=== PATIENT | male | born 1960 | race African-American/Black ===

== ENCOUNTER 2023-03-03 08:33 | Outpatient (CLI) | payer BC, SELFPAY | END 2023-03-03 08:34 | disposition home or self-care (01) | LOC: NFLDREF 03-05 20:03 | PROVIDERS: PCP Family Medicine; Referring Provider Family Medicine; Visit Provider Family Medicine | DX: Z12.5 Encounter for screening for malignant neoplasm of prostate (principal); Z13.1 Encounter for screening for diabetes mellitus; Z13.220 Encounter for screening for lipoid disorders | CPT/HCPCS: 80053; 80061; 84153 ==

== ENCOUNTER 2023-09-04 08:04 | Outpatient (CLI) | payer BC, SELFPAY ==
--- OUTSIDE RECORDS SUMMARY | 2023-09-06 07:25 | XMS_ITS | Data Portability ---
Author Name Unknown Address [address] [place] [address] Phone [phone] Organization [facility], [facility] Address [address] [facility] [address] [place] [address] Care Team Providers Care Caser Name Role Phone DEANNKAREL Primary Care Provider [phone] Assessment Encounter Date Assessment Date Assessment LastModified by Organization Details LastModified Time 09/17/2021 09/17/2021 61 yoM with elevated PSA and abnormal Prostate MRI now s/p biopsy Not available 09/17/2021 09:47:53 10/01/2021 10/01/2021 61 yoM with elevated PSA and abnormal Prostate MRI now s/p biopsy Of note a total of 30 minutes was spent: preparing to see the patient by reviewing records, images, and laboratory data; obtaining/revie wing separately obtained history; performing physical examination, counseling and educating patient/family/ caregiver; ordering appropriate medications, labs, imaging or procedures; documenting the clinical encounter; and coordination of care. Not available 10/01/2021 16:54:13 05/20/2022 05/20/2022 62M s/p RALP on 05/10/[address] Love for pT3aNX Etienne 4+3=7 prostate cancer (+SMS (1 mm at right apex), +LVI, tert pattern 5). We discussed the pathology report in detail, and I explained the risk of recurrence and need for ongoing follow-up for PSA monitoring. We will check the first postop PSA in about 6 weeks. We also discussed expectations for recovery of continence and the importance of Kegel exercises. 1. Prostate cancer - Moran removed today - abx for ppx (cipro 500 mg x2) - continue lifting/activit y restrictions x6 weeks post-op - reviewed Julio Cesar, handout provided - f/u in 6 weeks with PSA with Dr. Ivan [email or web address] Not available 05/20/2022 11:34:53 Plan of Treatment Reminders Order Date Submit Date Provider Last Modified By Organization Details Last Modified Time Details Appointments None recorded . Lab PSA, serum or plasma 2023 024 melissa [facility], [address], [place], [address], 4 16:34:49 PSA, serum or plasma 2022 023 yane [facility], [address], [place], [address], 3 15:53:53 Referral None recorded . Procedures None recorded . Surgeries None recorded . Imaging NM, bone scan, whole body - Please contact patient to gadiel frausto. Thank you. 2021 022 [facility] Radiology Department, [address] [place], [address], 2 08:58:34 CT, abdomen + pelvis, w/ contrast - Please contact patient to vicente frausto. Thank you. 2021 022 [facility] Radiology Department, [address] [place], [address], 2 15:14:25 Medication Orders FV-Tri-M ix 4 2023 024 [facility], [address] [place] [address], [address], 4 16:40:01 Patient TargetsNo targets recorded. Patient Instructions Encounter Date Encounter Id Patient Instructions Last Modified By Organization Details Last Modified Time 10/01/2021 [id number] I had a long discussion regarding the diagnosis of prostate cancer and its treatment options. I told him that prostate cancer is the most common cancer in men in the [place] and that with PSA screening and emerging public awareness of the disease, prostate cancer is being diagnosed with greater frequency and fortunately at an earlier stage. We briefly discussed the controversies regarding PSA screening for prostate cancer. We discussed the treatment options for localized disease, reviewing the potential complications and advantages of each therapeutic modality. I mentioned that for some men, watchful waiting or active surveillance may be an appropriate option. Prostate cancer can sometimes behave in a relatively indolent manner, and for those who have other comorbidities or advanced age, simply following the patient and reserving treatment for clinical symptoms may be the best option. Unfortunately, we do not know which cancers will behave in this manner and which ones will be more aggressive. Obviously there is a risk of spread of the cancer and continued local growth if the cancer is not treated. I then discussed radiation therapy, both as external beam and interstitial brachytherapy. We talked about the potential side effects of radiation cystitis, radiation proctitis, impotence, fistula formation, and incontinence. I then talked about surgery, specifically radical prostatectomy. This can be performed either open or robotic-assisted laparoscopically, with similar outcomes. I told him that there is a risk of bleeding requiring blood transfusion (about 5-10%), infection, wound complications, rectal injury, DVT/PE, erectile dysfunction (20-70%), bladder neck contracture (3%) and incontinence (severe enough to require further therapy in 3-5%). The advantage of surgery is that we would be able to analyze the specimen and the regional lymph nodes, thereby knowing the true pathologic stage of the disease. This would allow us to better gauge his prognosis, and possibly guide decisions regarding adjuvant therapies such as radiation or hormone therapy. We also discussed some of the newer technologies, such as cryotherapy and proton beam therapy, though it is still too early to know what the long-term outcomes are for these treatments. I then discussed the surgery and the perioperative management. I believe that he would be an appropriate candidate for a robotic-assisted laparoscopic approach utilizing the Bluetector robotic system. He would have a catheter in place for about 7-10 days. A drain will be placed and removed prior to his discharge from the hospital, typically in about 1-2 days. I warned the patient that it is common to have some incontinence immediately after the catheter is removed, but this usually quickly improves. Usually by about 6 months, nearly 80% of patients will have regained their continence, and nearly all patients by 1 year. Erectile function may take 1, even 2 years to improve, though this is variable. We talked about some of the treatments for erectile dysfunction, including oral therapies, injections, pump, and penile prosthetics. We also briefly touched upon management for persistent incontinence, should that be a problem, including pads, artificial sphincters, and injectable therapies. Postoperatively, I would continue to follow him at regular intervals with PSA? s and exams to ensure that the prostate cancer does not come back. Not available 10/01/2021 16:55:22 Reason for Referral None Reported. Results Created Date Observation Date Name Description Value Unit Range Abnormal Flag LastModifiedBy Organization Detail LastModifiedTime 08/12/19 23 08/11/2022 PSA, serum or plasm a PSA <0.04 ng/ml 0-4.0 Not Available [facility] [address], [place], [address], 08/11/2022 15:26:17 06/08/19 24 06/08/2023 PSA, serum or plasm a PSA <0.04 ng/ml 0-4.0 Not Available [facility] [address], [place], [address], 06/08/2023 16:16:16 07/20/19 22 07/16/2021 MRI, prost ate, w/wo contr ast No observ ation record ed. Not Available 09/17/2021 13:13:46 09/22/19 22 09/17/2021 US, prost ate No observ ation record ed. BARCODE Not Available 09/21/2021 10:09:03 10/22/19 22 10/21/2021 CT, abdom en + pelvi s, w/ contr ast No observ ation record ed. [email or web address] [facility] Radiology Department [address] [place], [address], 10/25/2021 13:26:08 10/23/19 22 10/21/2021 NM, bone scan, whole body No observ ation record ed. [email or web address] [facility] Radiology Department [address] [place], [address], 10/25/2021 13:26:08 11/20/19 22 11/02/2021 PET-C T, skull base to mid-t high scan No observ ation record ed. [email or web address] [facility] [address] [place], [address], 01/04/2022 11:54:30 Result Notes None recorded. Problems Name Status Onset Date Resolution Date Notes Provider Name and Address Organization Details Recorded Time Malignant tumor of prostate Active 05/09/20 22 Etienne 8 left base and mid. Negative preop PSMA scan. 58cc gland. RALP on 05/10/[address] Love for pT3aNX Etienne 4+3=7 prostate cancer (+SMS (1 mm at right apex), +LVI, tert pattern 5). Isaac Love MD [address] [place] [address],[address] [place] [address], [address] , [facility] 06/30/2022 13:30:19 Problem Notes None recorded. Procedures Surgical History Date Name Laterality Status Provider Name and Address Organization Details Recorded Time 4 COMPLEX VISIT completed Isaac Love MD [address] [place] [address],[address] [place] [address], [address], [facility] 07/06/2023 16:24:37 4 DT Penile Injection Teaching completed Isaac Love MD [address] [place] [address],[address], [place], [address], [facility] 07/06/2023 16:22:25 4 COMPLEX VISIT completed Isaac Love MD [address] [place] [address],[facility] [address], [place], [address], [facility] 06/08/2023 16:43:03 4 Blood Draw/FIELD SERVICE REPRESENTATIVE/PSA RESULTS completed Joe hartman [facility] 06/08/2023 16:16:13 3 Blood Draw/FIELD SERVICE REPRESENTATIVE/PSA RESULTS completed Isaac Love MD [address] [facility],[address], [place], [address], [place] [facility] 08/11/2022 15:26:13 3 Moran Catheter Removal completed Becca Worrell PA-C [address] [facility],[address], [place], [address], [place] [facility] 05/20/2022 11:34:13 2 PROSTATECTOMY, LAPAROSCOPIC, ROBOTIC (SURG) completed Gosia hartman [facility] 05/12/2022 11:44:54 2 Prostate Biopsy Procedure completed Hector De Jesus MD [address] [facility],[address], [place], [address], [place] [facility] 09/17/2021 13:15:26 1 Colonoscopy completed Isaac Love MD [address] [facility],[address], [place], [address], [facility] 02/02/2022 15:33:01 Imaging Results Imaging Date Name Status LastModified by Organiz atformerly [facility] Details LastModified Time 07/16/2021 MRI, prostate, w/wo contrast completed Information not available 09/17/2021 13:13:46 09/17/2021 US, prostate completed BARCODE Information not available 09/21/2021 10:09:03 10/21/2021 CT, abdomen + pelvis, w/ contrast completed [address] Radiology Department [address] [place], [address], 10/25/2021 13:26:08 10/21/2021 NM, bone scan, whole body completed [address] Radiology Department [address] [place], [address], 10/25/2021 13:26:08 11/02/2021 PET-CT, skull base to mid-thigh scan completed [email or web address] [facility] [address] [place], [address], 01/04/2022 11:54:30 Procedure Notes None recorded. Medical Equipment None Reported. Allergies No known drug allergies Medications Name Sig Start Date Stop Date Status Note LastModified by Organization Details LastModified Time FV-Tri-Mix 4 inject 0.1-0.6 cc intracave rnosal as directed PRN for sexual activity 2023 active Not Available Not Available Not Avai lable amlodipine 5 mg tablet TAKE 1 TABLET BY MOUTH DAILY active Not Available Not Available No t Available ceftriaxone 1 gram solution for injection Take 1 g by injection route. 02/02 completed Not Available Not Available Not Available prednisolon e acetate 1 % eye drops,suspe nsion SHAKE LIQUID AND INSTILL 1 DROP IN RIGHT EYE TWICE DAILY 02/02 completed Not Available Not Available Not Available papaverine (bulk) powder 07/06 completed Not Available Not Available Not Available triamterene 37.5 mg-hydrochl orothiazide 25 mg tablet TAKE 1 TABLET BY MOUTH DAILY 02/02 completed Not Available Not Available Not Available oxycodone 5 mg tablet 05/20 completed Not Available Not Available Not Available tadalafil 5 mg tablet TAKE 1 TABLET BY MOUTH ONCE DAILY 07/06 completed Not Available Not Available Not Available Senexon-S 8.6 mg-50 mg tablet 05/20 completed Not Available Not Available Not Available Vitals Date Recorded Body height Body mass index (BMI) Body weight Provider Name and Address Organization Details Last Updated DateTime 02/02/2022 165.1 cm 30 kg/m2 88087.63 g Isaca Love MD [address] [place] [address], [address], [facility] 02/02/2022 15:32:05 Date Recorded Body height Body mass index (BMI) Body weight Provider Name and Address Organization Details Last Updated DateTime 05/20/2022 165.1 cm 30 kg/m2 07215.63 g Domi hartman [facility] 05/20/2022 11:00:14 Date Recorded Body height Body mass index (BMI) Body weight Provider Name and Address Organization Details Last Updated DateTime 06/30/2022 165.1 cm 30 kg/m2 64364.63 g Isaac Love MD [address] [place] [address],[address], [address] [place] [address] 06/30/2022 14:03:44 Date Recorded Body height Body mass index (BMI) Body weight Provider Name and Address Organization Details Last Updated DateTime 08/11/2022 165.1 cm 30 kg/m2 20885.63 g Isaac Love MD [address] [address] [place] [address] 08/11/2022 15:25:58 Date Recorded Body height Body mass index (BMI) Body weight Provider Name and Address Organization Details Last Updated DateTime 06/08/2023 165.1 cm 30 kg/m2 99011.63 g Joe hartman [facility] 06/08/2023 16:15:42 Date Recorded Body height Body mass index (BMI) Body weight Provider Name and Address Organization Details Last Updated DateTime 07/06/2023 165.1 cm 30 kg/m2 73473.63 g Isaac Love MD [address] [address] [place] [address] 07/06/2023 15:49:01 Date Recorded Body height Body mass index (BMI) Body weight Provider Name and Address Organization Details Last Updated DateTime 10/01/2021 165.1 cm 30 kg/m2 84177.16 g Joe hartman [facility] 10/01/2021 16:26:17 Social History Question Answer Notes LastModified by Organizat ion Details LastModified Time Tobacco Smoking Status Never Smoker Froy hartman [facility] 09/17/2021 12:43:47 What Is Your Level Of Alcohol Consumption? Occasional Information not available 05/20/2022 What Is Your Level Of Caffeine Consumption? Occasional Information not available 05/20/2022 What Was The Date Of Your Most Recent Tobacco Screening? 06/08/2023 [email or web address] Information not available 06/08/2023 Do You Use Any Illicit Or Recreational Drugs? No Information not available 05/20/2022 Has Tobacco Cessation Counseling Been Provided? No Information not available 05/20/2022 Sex: Male Functional Status None recorded. Mental Status None recorded. Family History Relationship Description Onset Age of this Age Resolved Age Notes Father No current problems or disability Mother No current problems or disability Medical History Condition Response Sexually Transmitted Infection N Diabetes N Bleeding Disorder N Other N High Blood Pressure Y Kidney Stones N High Cholesterol N GERD/Acid Reflux N Heart Disease N Cancer Y Lung Disease N Depression N Immunizations Vaccine Type Date Status Provider Name and Address Organization Details Recorded Time COVID-19, mRNA, LNP-S, PF, 30 mcg/0.3 mL dose 09/11/2020 completed GIANFRANCO Oropeza [facility] 03/02/2023 13:38:09 COVID-19, mRNA, LNP-S, PF, 30 mcg/0.3 mL dose 10/02/2020 completed GIANFRANCO Oroepza [facility] 03/02/2023 13:38:09 influenza, injectable, quadrivalent, preservative free 04/29/2021 completed GIANFRANCO Oropeza [facility] 03/02/2023 13:38:09 Past Encounters Encounter ID Performer Location Encounter Start Date Encounter Closed Date Diagnosis/Indication Diagnosis SNOMED-CT Code [id number] Hector De Jesus MD [facility] [address] [place] [address] 09/17/2021 12:28:13 09/20/2021 14:02:10 Prostate specific antigen above reference range [id number] MD ELLIOT [facility] [address] [place] [address] 10/01/2021 16:21:46 10/04/2021 08:47:54 Prostate specific antigen above reference range [id number] Malignant tumor of prostate 640053895 [id number] Isaac Love MD [facility] [address] [place] [address] 02/02/2022 15:24:47 02/07/2022 13:12:00 Malignant tumor of prostate 562002446 [id number] Becca Worrell PA-C [facility] [address] [place] [id number] 05/20/2022 10:56:09 05/23/2022 11:49:35 Malignant tumor of prostate 575692888 [id number] MD ELLIOT [facility] [address] [place] [address] 06/30/2022 13:36:21 07/06/2022 16:01:41 Malignant tumor of prostate 348727121 [id number] MD ELLIOT [facility] [address] [place] [address] 08/11/2022 15:01:44 08/17/2022 12:41:46 Malignant tumor of prostate 707688801 Secondary erectile dysfunction 525731451 [id number] MD ELLIOT [facility] [address] [place] [address] 06/08/2023 15:59:27 06/09/2023 09:15:07 Malignant tumor of prostate 167482578 Primary er ectile dysfunction 978206956 [id number] Isaac Love MD [facility] [address] [place] [address] 07/06/2023 15:41:42 07/10/2023 15:09:34 Secondary erectile dysfunction 669046251 Malignant tumor of prostate 126832632 Health Concerns Section Related Observation LastModified by Organization Detai ls LastModified Time None Recorded Concern Status LastModified by Organization Details LastModified Time None Recorded Advance Directives Directive None Recorded Payers Encounter Date Sequence Insurance Name Policy Number Policy Serrano Covered Member ID Serrano Member ID Guarantor Name 07/06/2023 1 [facility] [id number] Ede P [place] [id number] [place] 06/08/2023 1 [facility] [id number] [place] [id number] [place] P [place] 08/11/2022 1 [employer] (MEDICAID HMO) [id number] [place] [id number] Ede P [place] 06/30/2022 1 [employer] (MEDICAID HMO) [id number] [place] [id number] Ede P [place] 05/20/2022 1 [employer] (MEDICAID HMO) [id number] [place] [id number] Ede P [place] 02/02/2022 1 [facility] (MEDICAID HMO) [id number] [place] [id number] Ede P [place] 10/01/2021 1 [facility] (MEDICAID HMO) [id number] [place] [id number] Ede P [place] 09/17/2021 1 [facility] (MEDICAID HMO) [id number] Ede P [place] [id number] Ede P [place] Notes Date Note Type Note Provider Name and Address Organization Details Recorded Time 09/17/2021 text/html HPI Notes: NF pa tient here for TRUS biopsy of Prostate. PIRADS 5 lesion in peripheral zone abutting the capsule. Hector De Jesus MD [address] [place] [address],[address], [place], [address], [facility] 09/17/2021 13:16:02 10/01/2021 text/html HPI Notes: This visit was conducted by telephone due to the COVID-19 crisis. Prior to conducting our telephone visit, the patient was apprised of the risks, benefits and alternatives to telephone visits including but not limited to poor audio quality, interrupted visits due to technological limitations, delays in medical evaluation and treatment due to deficiencies or failures of equipment, failure of security protocols resulting in a breach of privacy of personal medical information and a lack of access to complete medical records resulting in not fully informed decisions. Also, because of the COVID-19 pandemic, it was not possible for the patient to sign the privacy regulations, HIPAA release and assignment of benefits forms. The patient was given the opportunity to ask questions about these policies and gave verbal acknowledgement and approval of these policies as well as to hold this meeting by telephone. Lastly, the patient agreed to allowing their medication history to be pulled from a national pharmacy database to facilitate and coordinate their care. NF patient here for TRUS biopsy of Prostate. PIRADS 5 lesion in peripheral zone abutting the capsule. 10/01/2021: S/P Prostate Biopsy, here for path review. Hector De Jesus MD [address] [facility] [address], [place], [address], [facility] 10/01/2021 16:55:57 02/02/2022 text/html HPI Notes: Here to discuss his new diagnosis of prostate cancer: [place] 8 left side, right side clear. 58cc gland Negative metastatic work up (PMSA). Good sexual function. He's not sure if he want to proceed with radiation or surgery. 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 Isaac Love MD [address] [place] [address],[address] [place] [address], [address], [facility] 02/02/2022 16:12:39 05/20/2022 text/html HPI Notes: 62M s /p RALP on 05/10/[address] Love for pT3aNX Etienne 4+3=7 prostate cancer (+SMS (1 mm at right apex), +LVI, tert pattern 5). Overall doing well since surgery. Noticed some discomfort at meatus when trying to have BMs. Denies abdominal pain. He has increased activity to a near normal level. Good appetite and having normal BMs now. He denies leg swelling, problems with incisions, or fever/chills. Becca Worrell PA-C [address] [place] [address],[address], [address], [facility] 05/20/2022 11:35:10 06/30/2022 text/html HPI Notes: 62M s /p RALP on 05/10/[address] Love for pT3aNX [place] 4+3=7 prostate cancer (+SMS (1 mm at right apex), +LVI, tert pattern 5). Doing well post op, mild incontinence using one pad a day. His continence is quite good. Isaac Love MD [address] [place] [address],[address] [place] [address], [address], [facility] 06/30/2022 14:24:56 08/11/2022 text/html HPI Notes: 3 mon ths s/p prostatecotmy. PSA undetectable today. His continence is good with no pads. He only neded pads for a couple of days. Isaac Love MD [address] [place] [address],[address], [place], [address], [facility] 08/11/2022 15:56:31 06/08/2023 text/html HPI Notes: One y ear f/u for prostate cancer treated with surgery. He has very good continence. No erections on his own yet. He was using prn Cialis but it caused systemic swelling. Isaac Love MD [address] [place] [address],[address], [place], [address], [facility] 06/08/2023 16:43:12 07/06/2023 text/html HPI Notes: Here for [employer] training. Isaac Love MD [address] [place] [address],[address], [place], [address], [facility] 07/06/2023 16:24:52
--- OUTSIDE RECORDS SUMMARY | 2023-09-06 07:25 | XMS_ITS | Continuity of Care Document ---
Author Name Unknown Address [address] [place] [address] Phone [phone] Organization [facility] Address [address] [place] [address] Care Team Providers Care Advanced Seal Delivery System Name Role Phone KAREL ZACARIAS Primary Care Provider [phone] Assessment No assessment recorded. Plan of Treatment Reminders Order Date Submit Date Provider Last Modified By Organization Details Last Modified Time Details Appointments None record ed. Lab None record ed. Referral None record ed. Procedures None record ed. Surgeries None record ed. Imaging None record ed. Medication Orders None record ed. Patient TargetsNo targets recorded. Patient InstructionsNo instructions recorded. Reason for Referral None Reported. Problems Name Status Onset Date Resolution Date Notes Provider Name and Address Organization Details Recorded Time Malignant tumor of prostate Active 05/09/20 22 [employer] 8 left base and mid. Negative preop PSMA scan. 58cc gland. RALP on 05/10/[address] Love for [id number] Etienne 4+3=7 prostate cancer (+SMS (1 mm at right apex), +LVI, tert pattern 5). Isaac Love MD [address] [facility],[address], [place], [address] , [facility] 06/30/2022 13:30:19 Problem Notes None recorded. Procedures Surgical History Date Name Laterality Status Provider Name and Address Organization Details Recorded Time 4 COMPLEX VISIT completed Isaac Love MD [address] [facility],[address], [place], [address], [facility] 07/06/2023 16:24:37 4 DT Penile Injection Teaching completed Isaac Love MD [address] [place] [address],[address], [place], [address], [facility] 07/06/2023 16:22:25 4 COMPLEX VISIT completed Isaac Love MD [address] [place] [address],[address], [place], [address], [facility] 06/08/2023 16:43:03 4 Blood Draw/DESKTOP OPERATOR/PSA RESULTS completed Joe hartman [facility] 06/08/2023 16:16:13 3 Blood Draw/DESKTOP OPERATOR/PSA RESULTS completed Isaac Love MD [address] [place] [address],[address], [place], [address], [facility] 08/11/2022 15:26:13 3 Moran Catheter Removal completed Becca Worrell PA-C [address] [place] [address],[address], [place], [address], [facility] 05/20/2022 11:34:13 2 PROSTATECTOMY, LAPAROSCOPIC, ROBOTIC (SURG) completed Gosia hartman [facility] 05/12/2022 11:44:54 2 Prostate Biopsy Procedure completed Hector De Jesus MD [address] [place] [address],[address], [place], [address], [facility] 09/17/2021 13:15:26 1 Colonoscopy completed Isaac Love MD [address] [place] [address],[address], [place], [address], [facility] 02/02/2022 15:33:01 Imaging Results None recorded. Procedure Notes None recorded. Medical Equipment None [...] Updated DateTime 07/06/2023 165.1 cm 30 kg/m2 00317.63 g Isaac Love MD [address] [place] [address],[address], [address] [place] [address] Urology 07/06/2023 15:49:01 Social History Question Answer Notes LastModified by Organizat ion Details LastModified Time Tobacco Smoking Status [facility] 12:43:47 What Is Your Level Of [...] problems or disability Medical History Condition Response Other N High Blood Pressure Y Kidney Stones N Lung Disease N Depression N GERD/Acid Reflux N Sexually Transmitted Infection N Diabetes N Bleeding Disorder N Cancer Y High Cholesterol N Heart Disease N Immunizations Vaccine Type Date Status Provider Name and Address Organization Details Recorded Time COVID-19, mRNA, LNP-S, PF, 30 mcg/0.3 mL dose 09/11/2020 completed Arielle hartman [facility] 03/02/2023 13:38:09 COVID-19, mRNA, LNP-S, PF, 30 mcg/0.3 mL dose 10/02/2020 completed Arielle hartman [facility] 03/02/2023 13:38:09 influenza, injectable, quadrivalent, preservative free 04/29/2021 completed Arielle hartman [facility] 03/02/2023 13:38:09 Past Encounters Encounter ID Performer Location Encounter Start Date Encounter Closed Date Diagnosis/Indication Diagnosis SNOMED-CT Code [id number] MD ELLIOT Friedman_Ni [address] [place] [address] 06/08/2023 15:59:27 06/09/2023 09:15:07 Malignant tumor of prostate [id number] Primary er ectile dysfunction [id number] MD ELLIOT Friedman_Ni [address] [place] [address] 07/06/2023 15:41:42 07/10/2023 15:09:34 Secondary erectile dysfunction [id number] Malignant tumor of prostate [id number] Health Concerns Section Related Observation LastModified by Organization Detai ls LastModified Time None Recorded Concern Status LastModified by Organization Details LastModified Time None Recorded Payers Encounter Date Sequence Insurance Name Policy Number Policy Serrano Covered Member ID Serrano Member ID Guarantor Name 07/06/2023 1 [facility] [id number] Ede Mckeon [id number] Ede Mckeon Notes Date Note Type Note Provider Name and Address Organization Details Recorded Time 07/06/2023 text/html HPI Notes: Here for [employer] training. Isaac Love MD [address] [facility] [address], [place], [address], [facility] 07/06/2023 16:24:52
--- OUTSIDE RECORDS SUMMARY | 2023-09-06 07:25 | XMS_ITS | Clinical Summary ---
Author Name Unknown Organization [facility] Address [place], [place] [address] Care Team Providers Care Communications Lead Name Role Phone [facility] Primary Care Provider Allergies No known active allergies Medications Medication Sig Dispensed Refills Start Date End Date Status amLODIPine (NORVASC) 5 mg tablet Take 5 mg by mouth once daily. Active oxyCODONE (ROXICODONE) 5 mg immediate release tabletIndications:Pro state cancer (HC) Take 1 Tablet (5 mg) by mouth every 6 hours if needed for severe pain. 10 Tablet 05/11/2022 Active sennosides-docusate (SENOKOT S) (8.6-50 mg) tabletIndications:Pro state cancer (HC) Take 1-2 Tablets by mouth 2 times daily if needed for Constipation. 30 Tablet 05/11/2022 Active Active Problems Problem Noted Date Diagnosed Date Prostate cancer Social History Tobacco Use Types Packs/Day Years Used Date Smoking Tobacco: Never Smokeless Tobacco: Never Tobacco Cessation:Counseling Given: Not Answered Alcohol Use Standard Drinks/Week Comments Not Currently 0 (1 standard drink = 0.6 oz pur e alcohol) Sex and Gender Information Value Date Recorded Sex Assigned at Not on file Gender Identity Not on file Sexual Orientation Not on file Obstetrics History Last Filed Vital Signs Vital Sign Reading Time Taken Comments Blood Pressure 115/67 05/11/2022 7:[address] LIGHT LAMP CLEANER Pulse 81 05/11/2022 7:[address] LIGHT LAMP CLEANER Temperature 37.2 ??C (99 ??F) 05/11/2022 10:[address] LIGHT LAMP CLEANER Respiratory Rate 16 05/11/2022 7:[address] LIGHT LAMP CLEANER Oxygen Saturation 94% 05/11/2022 7:[address] LIGHT LAMP CLEANER Inhaled Oxygen Concentration - - Weight 83 kg (183 lb) 05/10/2022 6:[address] LIGHT LAMP CLEANER Height 165.1 cm (5' 5) 05/10/2022 6:[address] LIGHT LAMP CLEANER Body Mass Index 30.45 05/10/2022 6:[address] LIGHT LAMP CLEANER Plan of Treatment Health Maintenance Due Date Last Done Comments Tdap 1971 Depression screening for age 12+ 1972 HIV for age 15-65 1975 Hepatitis C screening for ag e 18-79 1978 Tetanus booster 1980 Colonoscopy through age 75 2005 Lipids for age 45-75 2005 Zoster (shingles) series for age 50+ (1 of 2) 2010 BMI (ht and wt on same day) for age 18+ 06/23/2022 06/23/2021 COVID-19 vaccine series ( season) 2023 10/02/2020, 09/11/2020 Influenza for age 50-64 01/14/2024 Pneumococcal series for age 6-64 Aged Out No longer eligible b ased on patient's age to complete this topic Advance Directives * Full Code (Latest Code Status on File) Date Activated Date Inactivated Comments 05/10/2022 5:57 AM 05/11/2022 4:39 PM Question Answer Comments Code Status Discussion: Not Discussed Care Teams Communications Lead Relationship Specialty Start Date End Date [facility] [address] [address] PCP - General 05/12/21
--- OUTSIDE RECORDS SUMMARY | 2023-09-06 07:25 | XMS_ITS | Continuity of Care Document ---
Author Name Unknown Address [address] [place] [address] Phone [phone] Organization [facility] Address [address] [place] [address] Care Team Providers Care Refrigerating Machine Operator Name Role Phone KAREL ZACARIAS Primary Care Provider Assessment No assessment recorded. Plan of Treatment Reminders Order Date Submit Date Provider Last Modified By Organization Details Last Modified Time Details Appointments None recorde d. Lab PSA, serum or plasma 2023 024 melissa [facility], [address], [place], [address], 16:34:49 Referral None recorde d. Procedures None recorde d. Surgeries None recorde d. Imaging None recorde d. Medication Orders [facility]V-Tri- Mix 4 2023 024 [facility], [address] [place], [address], 16:40:01 Patient TargetsNo targets recorded. Patient InstructionsNo instructions recorded. Reason for Referral None Reported. Results Created Date Observation Date Name Description Value Unit Range Abnormal Flag LastModifiedBy Organization Detail LastModifiedTime 06/08/1906/08/2023 PSA, serum or plasm a PSA <0.04 ng/ml 0-4.0 Not Available [facility] [address], [place], [address], 06/08/2023 16:16:16 Result Notes None recorded. Problems Name Status Onset Date Resolution Date Notes Provider Name and Address Organization Details Recorded Time Malignant tumor of prostate Active 05/09/20 22 [place] 8 left base and mid. Negative preop PSMA scan. 58cc gland. RALP on 05/10/[address] Love for pT3aNX [place] 4+3=7 prostate cancer (+SMS (1 mm at right apex), +LVI, tert pattern 5). Isaac Love MD [address] [place] [address],[address], [address] , [facility] 06/30/2022 13:30:19 Problem Notes None recorded. Procedures Surgical History Date Name Laterality Status Provider Name and Address Organization Details Recorded Time 4 COMPLEX VISIT completed Isaac Love MD [address] [place] [address],[address], [address], [facility] 07/06/2023 16:24:37 4 DT Penile Injection Teaching completed Isaac Love MD [address] [place] [address],[address], [address], [facility] 07/06/2023 16:22:25 4 COMPLEX VISIT completed Isaac Love MD [address] [place] [address],[address], [address], [facility] 06/08/2023 16:43:03 4 Blood Draw/DRIVING SCHOOL INSTRUCTOR/PSA RESULTS completed Joe hartman [facility] 06/08/2023 16:16:13 3 Blood Draw/DRIVING SCHOOL INSTRUCTOR/PSA RESULTS completed Isaac Love MD [address] [place] [address],[address] [place] [address], [address], [facility] 08/11/2022 15:26:13 3 Moran Catheter Removal completed Becca Worrell PA-C [address] [place] [address],[address], [address], [facility] 05/20/2022 11:34:13 2 PROSTATECTOMY, LAPAROSCOPIC, ROBOTIC (SURG) completed Gosia hartman [facility] 05/12/2022 11:44:54 05/06/202 2 Prostate Biopsy Procedure completed Hector De Jesus MD [address] [facility],[address], [place], [address], [facility] 09/17/2021 13:15:26 1 Colonoscopy completed Isaac Love MD [address] [facility],[address], [place], [address], [facility] 02/02/2022 15:33:01 Imaging Results None recorded. Procedure [...] Updated DateTime 06/08/2023 165.1 cm 30 kg/m2 79151.63 g Joe hartman [facility] 06/08/2023 16:15:42 Social History Question Answer Notes LastModified by Organizat ion Details LastModified Time Tobacco Smoking Status Never Smoker Froy hartman [facility] 09/17/2021 12:43:47 What Is Your Level [...] mcg/0.3 mL dose 09/11/2020 completed GIANFRANCO Oropeza [facility] 03/02/2023 13:38:09 COVID-19, mRNA, LNP-S, PF, 30 mcg/0.3 mL dose 10/02/2020 GIANFRANCO Manuel [facility] 03/02/2023 13:38:09 influenza, injectable, quadrivalent, preservative free 04/29/2021 elizabeth hartman [facility] 03/02/2023 13:38:09 Past Encounters Encounter ID Performer Location Encounter Start Date Encounter Closed Date Diagnosis/Indication Diagnosis SNOMED-CT Code [id number] Isaac Love MD [facility] [address] [place] [id number] 06/08/2023 15:59:27 06/09/2023 09:15:07 Malignant tumor of prostate [id number] Primary er ectile dysfunction [id number] Health Concerns Section Related Observation LastModified by Organization Detai ls LastModified Time None Recorded Concern Status LastModified by Organization Details LastModified Time None Recorded Payers Encounter Date Sequence Insurance Name Policy Number Policy Serrano Covered Member ID Serrano Member ID Guarantor Name 06/08/2023 1 [facility] [id number] Ede Ernandezemiliebrittany [id number] Ede Wilson Mike Notes Date Note Type Note Provider Name and Address Organization Details Recorded Time 06/08/2023 text/html HPI Notes: One year f/u for prostate cancer treated with surgery. He has very good continence. No erections on his own yet. He was using prn Cialis but it caused systemic swelling. Isaac Love MD [address] [place] [address],[address], [place], [address], [facility] 06/08/2023 16:43:12
== END 2023-09-04 08:05 | disposition home or self-care (01) ==
LOC: NFLDREF 09-06 07:23
PROVIDERS: PCP Family Medicine; Referring Provider Family Medicine; Visit Provider Family Medicine
DX: Z12.5 Encounter for screening for malignant neoplasm of prostate (principal); Z13.1 Encounter for screening for diabetes mellitus; Z13.220 Encounter for screening for lipoid disorders
CPT/HCPCS: 80053; 80061; G0103

== ENCOUNTER 2024-12-19 08:45 | Outpatient (CLI) | payer BC, SELFPAY | END 2024-12-19 08:46 | disposition home or self-care (01) | LOC: NFLDREF 12-25 12:02 | PROVIDERS: PCP Family Medicine; Referring Provider Family Medicine; Visit Provider Family Medicine | DX: I10 Essential (primary) hypertension (principal); R74.01 Elevation of levels of liver transaminase levels; Z12.5 Encounter for screening for malignant neoplasm of prostate | CPT/HCPCS: 80053; 80061; G0103 ==

== ENCOUNTER 2024-12-30 08:15 | Outpatient (CLI) | payer BC, SELFPAY ==
--- NOTE | 2024-12-30 08:15 | CRLHL7_ITS ---
For Patients: As a result of the Century Cures Act, medical imaging exams and procedure reports are released immediately into your electronic medical record. You may view this report before your referring provider. If you have questions, please contact your health care provider. INDICATION: Elevated liver function studies. TECHNIQUE: Ultrasound abdomen limited. Sonographic images of the right upper quadrant were obtained using pizano-scale and color Doppler images. COMPARISON: No recent comparison. FINDINGS: Liver: No masses. Limited evaluation. Gallbladder: Large shadowing echogenic focus near the gallbladder neck . The wall appears thickened with some linear possible hypoechoic pericholecystic fluid. Nontender to palpation. Common bile duct: 2 mm. Pancreas: Limited evaluation due to intervening bowel gas. Right kidney: 10.4 cm. Normal echotexture and cortex. No masses, stones, or hydronephrosis. Vasculature: Intact portal vein flow normal direction. IMPRESSION: 1. Large gallstone with some possible thickening and surrounding fluid. 2. The gallbladder is nontender to palpation. 3. The biliary tree is normal caliber. Dictated by Yehuda Soares MD @ 12/31/2024 9:59:58 AM (Electronically Signed)
== END 2024-12-30 08:16 | disposition home or self-care (01) ==
PROVIDERS: PCP Family Medicine; Visit Provider Family Medicine
DX: R79.89 Other specified abnormal findings of blood chemistry (principal); K80.20 Calculus of gallbladder without cholecystitis without obstruction
CPT/HCPCS: 76705

== ENCOUNTER 2025-01-29 09:24 | Outpatient (CLI) | payer BC, SELFPAY | END 2025-01-29 09:25 | disposition home or self-care (01) | PROVIDERS: PCP Family Medicine; Visit Provider Surgery | DX: R79.89 Other specified abnormal findings of blood chemistry (principal) | CPT/HCPCS: 80076; 84132 ==

== ENCOUNTER 2025-03-28 10:55 | Outpatient (CLI) | payer BC, SELFPAY | END 2025-03-28 10:56 | disposition home or self-care (01) | LOC: NFLDREF 04-02 18:35 | PROVIDERS: PCP Family Medicine; Referring Provider Family Medicine; Visit Provider Family Medicine | DX: R79.89 Other specified abnormal findings of blood chemistry (principal) | CPT/HCPCS: 80076; 84153 ==